=== PATIENT | female | born 1960 | race Caucasian/White ===

== ENCOUNTER 2017-02-18 01:23 | Observation (INO) | payer BC ==
[2017-02-18 02:01] LABS: BASOPHILS % (AUTO) 1 % (0-3); EOSINOPHILS % (AUTO) 3 % (0-9); HEMATOCRIT 35 % (35-47); MEAN CORPUSCULAR HGB CONC 35.1 gm/dl (32.0-36.0); MEAN CORPUSCULAR VOLUME 83 fL (81-99); MONOCYTES % (AUTO) 5.9 % (0-12)
[2017-02-18 02:15] LABS: ALBUMIN 3.6 gm/dl (3.4-5.0); CALCIUM 8.6 mg/dl (8.5-10.1); POTASSIUM 3.8 mMol/L (3.5-5.1)
[2017-02-18] MEDS ORDERED: SODIUM CHLORIDE 0.9% 1000ML 1,000 ML IV ONE (02:15)
[2017-02-18 03:30] LABS: APPEARANCE,URINE Clear; BILIRUBIN,URINE NEGATIVE (NEGATIVE); COLOR,URINE Yellow; GLUCOSE, URINE (UA) NEGATIVE (NEGATIVE); KETONES,URINE NEGATIVE (NEGATIVE); LEUKOCYTE ESTERASE ,URINE NEGATIVE (NEGATIVE); NITRATE,URINE NEGATIVE (NEGATIVE); OCCULT BLOOD,URINE TRACE INTACT (NEG-TRACE); PH,URINE 6.5; UROBILINOGEN,URINE 0.2 (0.2-1.0 EU)
[2017-02-18 03:34] LABS: RBC,URINE 0-2 (0-3AV/HPF); WBC,URINE 0-1 (0-5AV/HPF)
[2017-02-18] MEDS ORDERED: ACETAMINOPHEN 325 MG PO ONE (03:35)
[2017-02-18] MEDS ORDERED: ACETAMINOPHEN 325 MG ONE (03:36)
[2017-02-18] MEDS ORDERED: HYDROMORPHONE 1 MG/ML SYRINGE IV ONE ×2 (03:45→04:03)
[2017-02-18] MEDS ORDERED: HYDROMORPHONE 1 MG/ML SYRINGE ONE ×2 (03:46→04:03)
[2017-02-18] MEDS ORDERED: ONDANSETRON HCL 4 MG/2 ML SOL IV ONE (04:03)
[2017-02-18] MEDS ORDERED: ONDANSETRON HCL 4 MG/2 ML SOL ONE (04:04)
[2017-02-18] MEDS ORDERED: ONDANSETRON HCL 4 MG/2 ML SOL IV PRN (05:01)
[2017-02-18] MEDS ORDERED: HYDROMORPHONE 1 MG/ML SYRINGE IV PRN (05:01)
[2017-02-18] MEDS ORDERED: SODIUM CHLORIDE 0.9% FLUSH 10 ML SOL IV PRN (07:15)
[2017-02-18] MEDS: SODIUM CHLORIDE 0.9% 1000ML 1,000 ML IV SCH ×2 (08:02→18:11)
[2017-02-18] MEDS: ACETAMINOPHEN 325 MG PO PRN ×3 (09:03→20:54)
[2017-02-18 23:17] VITALS: RESP 18
[2017-02-19] MEDS: SODIUM CHLORIDE 0.9% 1000ML 1,000 ML IV SCH ×2 (03:20→07:47)
[2017-02-19 07:49] LABS: BASOPHILS % (AUTO) 2 % (0-3); EOSINOPHILS % (AUTO) 3 % (0-9); HEMATOCRIT 37 % (35-47); MEAN CORPUSCULAR VOLUME 84 fL (81-99); MONOCYTES % (AUTO) 5.8 % (0-12); NEUTROPHILS % (AUTO) 56.6 % (37-80)
[2017-02-19 08:13] LABS: ALBUMIN 3.4 gm/dl (3.4-5.0); CALCIUM 8.6 mg/dl (8.5-10.1); POTASSIUM 3.6 mMol/L (3.5-5.1)
[2017-02-19 08:18] VITALS: BP 109/69; PULSE 64; TEMP 98.1; O2SAT 98
== END 2017-02-19 09:10 | disposition home or self-care (01) ==
LOC: ED 01:23 → ACUTE CARE 04:58
PROVIDERS: ADMIT Family Medicine; ATTEND Family Medicine
DX: R10.13 Epigastric pain (principal); Z90.49 Acquired absence of other specified parts of digestive tract; R93.3 Abnormal findings on diagnostic imaging of other parts of digestive tract
CPT/HCPCS: 99285 ×3; 36415; 74177; 80053 ×2; 81001; 82150; 83690 ×2; 85025 ×2; J1170 ×2; J2405; Q9967; 96365; 96374; 96375; 99218